=== PATIENT | female | born 1975 | race Asian ===

== ENCOUNTER 2022-12-21 07:11 | Day surgery (SDC) | payer OTHER ==
[~2022-12-21] VITALS: Ht 144.8 cm; Wt 43.6 kg
[~2022-12-21 07:11] MED LIST: SODIUM CHLORIDE 0.9% 1,000 ML IV ONE
[2022-12-21] MEDS ORDERED: SODIUM CHLORIDE 0.9% 1,000 ML ONE (07:20)
[2022-12-21] MEDS ORDERED: MIDAZOLAM HCL 2 MG/2 ML VIAL ONE (07:51)
[2022-12-21] MEDS ORDERED: FentaNYL CITRATE PF 100 MCG/2 ML VIAL ONE (07:51)
[2022-12-21 09:36] VITALS: PULSE 96; RESP 15; O2SAT 100
[2022-12-21] MEDS ORDERED: MethylPREDNISolone SOD SUCC 125 MG/2 ML VIAL ONE (09:57)
[2022-12-21] MEDS ORDERED: MethylPREDNISolone SOD SUCC 125 MG/2 ML VIAL IVP ONE (10:30)
== END 2022-12-21 11:40 | disposition home or self-care (01) ==
LOC: SURGERY 07:11
PROVIDERS: ATTEND Internal Medicine Critical Care Medicine
DX: J38.4 Edema of larynx (principal); B37.0 Candidal stomatitis; Z79.899 Other long term (current) drug therapy
CPT/HCPCS: 31623; 88112; 87206; 87101; 87220; 87070; 88305; 31624; 71045; 87015; J3010; J2250; J2930; J7030